=== PATIENT | male | born 2005 | race African-American/Black ===

== ENCOUNTER 2024-03-15 23:18 | Emergency (ER) | payer BC ==
[~2024-03-15] VITALS: Ht 165.1 cm; Wt 59.1 kg
[2024-03-15 23:27] VITALS: BP 119/69; PULSE 88; RESP 22; TEMP 98.3; O2SAT 98
[2024-03-16] MEDS ORDERED: CETI-450 PO (01:09)
[2024-03-16] MEDS ORDERED: ALBU18HF12 IH (01:09)
[2024-03-16] MEDS ORDERED: PRED-554 PO (01:12)
[2024-03-16] MEDS ORDERED: DIPH50CA37 PO (01:12)
[2024-03-16] MEDS ORDERED: PredniSONE 20 MG TABLET PO ONE (01:15)
[2024-03-16] MEDS ORDERED: DiphenhydrAMINE HCL 25 MG CAPSULE PO ONE (01:15)
== END 2024-03-16 02:04 | disposition home or self-care (01) ==
LOC: EMS 23:22
DX: T78.40XA Allergy, unspecified, initial encounter (principal); L50.9 Urticaria, unspecified; J45.909 Unspecified asthma, uncomplicated; Z91.013 Allergy to seafood; X58.XXXA Exposure to other specified factors, initial encounter
CPT/HCPCS: 99283; J7512